=== PATIENT | female | born 1960 | race Caucasian/White ===

== ENCOUNTER → 2018-05-22 | Outpatient (CLI) | payer BC, OTHER ==
--- NOTE | 2018-05-24 06:27 | SLE ---
[facility] [place] [address] POLYSOMNOGRAPHY STUDY Name: ASHOK CHU Room #: REG [facility]#: [id number] Admission: 05/22/18 Attend Phys: Shalini Ocampo MD Discharge: Date of : 60 Report #: [id number] THIS REPORT FOR: //name// CC: Shalini Bajwa MD DATE OF SERVICE: 05/22/2018 ATTENDING PHYSICIAN: Dr. John Bajwa. HISTORY: The patient is 57 years old who weighs 180 pounds with a BMI of 35.1. The patient had a home sleep study and was found to have moderate [place] at an AHI of 23.9 per hour. The patient was clinically symptomatic with moderate to severe subjective hypersomnia with an [place] score of 17. The patient is referred back to Sleep Lab for CPAP titration study. During the night study, the patient spent 553 minutes in bed and slept for 480 minutes with a sleep efficiency of 86%. Sleep latency was 29.5 minutes with a REM latency of 299.5 minutes. Overall, sleep architecture showed normal stage 1 sleep, increased stage 2 sleep, normal N3 sleep and slightly reduced REM sleep, which was 14% of the total sleep time. EKG monitoring revealed an average heart rate of 71 beats per minute with a maximum 109 beats per minute. Occasional PVCs seen, but no sustained arrhythmias observed. PLMS were seen at an index of 21 per hour and 6 per hour caused EEG arousals. The patient was started on CPAP at a pressure of 5 cm water and titrated up to 16 cm water. At the final pressure, the patient slept for 64 minutes. The patient had a long REM sleep as well as supine sleep throughout. The patient's AHI was reduced to 1.9 per hour and oxygen saturations remained above 88%. IMPRESSION: 1. Moderate sleep apnea diagnosed by home sleep study previously. 2. Mild to moderate periodic limb movements. RECOMMENDATIONS: 1. CPAP at 16 cm water completely eliminated the patient's sleep apnea and should be used on a nightly basis. 2. Follow up in 4-6 weeks to assess compliance with CPAP and to document clinical improvement. 3. Weight loss is advised. 4. Avoid [employer] depressants. 5. Cautioned regarding driving until symptoms of sleep apnea resolve with the [facility] [address] [address] POLYSOMNOGRAPHY STUDY Name: ASHOK CHU Room #: REG [facility]#: [id number] Admission: 05/22/18 Attend Phys: Shalini Ocampo MD Discharge: Date of : 60 Report #: [id number] use of CPAP. 6. PLMS does not need to be treated unless the patient has symptoms of restless legs during the day. <ELECTRONICALLY SIGNED> By: Cabrera Martínez MD 05/24/18 0627 [id number] Cabrera Martínez MD /wing
== END ==
LOC: SLEEPLAB 05-02 15:37
DX: G47.30 Sleep apnea, unspecified (principal); G47.61 Periodic limb movement disorder